=== PATIENT | female | born 1980 | race African-American/Black ===

== ENCOUNTER 2017-03-08 17:47 | Emergency (ER) | payer MEDICAID ==
[~2017-03-08] VITALS: Ht 162.6 cm; Wt 88.0 kg
[2017-03-08] MEDS ORDERED: ONDANSETRON PF 4 MG/2 ML VIAL. IV ONE (18:30)
[2017-03-08] MEDS ORDERED: HYDROmorphone 2 MG/ML VIAL IV/SQ PRN (18:30)
[2017-03-08] MEDS: HYDROmorphone 2 MG/ML VIAL IM PRN ×2 (18:43→19:40)
[2017-03-08] MEDS ORDERED: IV NORMAL SALINE 1000ML BAG 1,000 ML IV SCH (18:45)
[2017-03-08] MEDS ORDERED: KETOROLAC TROMETHAMINE 60 MG/2 ML INJ. IM ONE (18:45)
--- NOTE | 2017-03-08 19:24 | PHYS DOC ---
Past Medical History Past Medical History: Asthma, Other Additional Past Medical Histor: SICKLE CELL Past Surgical History: Cholecystectomy, , Other Additional Past Surgical Histo: PARTIAL SPLENECTOMY Additional Information: 0.5 PPD Alcohol Use: None Drug Use: Marijuana Adult General Chief Complaint Chief Complaint: PAIN CONTROL HPI HPI Patient is a 36 year old female with sickle cell anemia who presents with generalized body pain, abdominal pain, and nbnb n/v developing over the past few days. States symptoms are exactly like prior sickle cell pain. States she is out of chronic narcotic medication and her doctor is out of town. She has been taking NSAIDs at home. She denies chest pain, dyspnea, cough, fever or chills, diarrhea, dark or bloody stools. Last bowel movement was yesterday and normal. She denies dysuria or hematuria. States she does not want an IV placed and she only wants IM medications. States she is ok having lab draw. Review of Systems Review of Systems Constitutional: Denies fever or chills [] Eyes: Denies change in visual acuity, redness, or eye pain [] HENT: Denies nasal congestion or sore throat [] Respiratory: Denies cough or shortness of breath [] Cardiovascular: No additional information not addressed in HPI [] GI: Denies abdominal pain, nausea, vomiting, bloody stools or diarrhea [] : Denies dysuria or hematuria [] Musculoskeletal: Denies back pain or joint pain [] Integument: Denies rash or skin lesions [] Neurologic: Denies headache, focal weakness or sensory changes [] Endocrine: Denies polyuria or polydipsia [] Current Medications Current Medications Current Medications Medications (Trade) Dose Ordered Sig/Arie Start Time Stop Time Status Last Admin Dose Admin Hydromorphone HCl (Dilaudid) 1 mg PRN Q15MIN PRN 03/08/17 18:30 03/08/17 20:51 DC 03/08/17 19:40 1 MG Ketorolac Tromethamine (Toradol Im) 30 mg 1X ONCE 03/08/17 18:45 03/08/17 18:46 DC 03/08/17 18:41 30 MG Ondansetron HCl (Zofran) 4 mg 1X ONCE 03/08/17 18:30 03/08/17 18:30 DC Promethazine HCl (Phenergan Im) 25 mg 1X ONCE 03/08/17 19:30 03/08/17 19:31 DC 03/08/17 19:39 25 MG Sodium Chloride 1,000 ml @ 1,000 mls/hr Q1H 03/08/17 18:45 03/08/17 18:45 DC Allergies Allergies Allergies Coded Allergies Type Severity Reaction Last Updated Verified Penicillins Allergy Severe anphylaxis 03/08/17 Yes morphine Allergy Intermediate 03/08/17 Yes ondansetron Allergy Intermediate 03/08/17 Yes Physical Exam Physical Exam Constitutional: Well developed, well nourished, non-toxic appearance. Crying. [] HENT: Normocephalic, atraumatic, bilateral external ears normal, oropharynx moist, nose normal. [] Eyes: PERRLA, EOMI. [] Neck: Normal range of motion, supple. [] Cardiovascular: Heart rate regular rhythm [] Lungs & Thorax: Bilateral breath sounds clear to auscultation [] Abdomen: Bowel sounds normal, soft, mild general tenderness, no guarding or rebound. [] Skin: Warm, dry, no erythema, no rash. [] Back: No tenderness, no CVA tenderness. [] Extremities: No bony tenderness, no discoloration, ROM intact, no edema. [] Neurologic: Alert and oriented X 3, normal motor function, normal sensory function, no focal deficits noted. [] Psychologic: Affect normal, judgement normal, mood normal. [] Current Patient Data Vital Signs Vital Signs Date Time Temp Pulse Resp B/P (MAP) Pulse Ox O2 Delivery O2 Flow Rate FiO2 03/08/17 20:21 88 211/109 (143) 96 Room Air 03/08/17 19:40 18 03/08/17 18:12 98.8 98.8 Lab Values Laboratory Tests Test 03/08/17 19:30 White Blood Count 9.0 x10^3/uL (4.0-11.0) Red Blood Count 4.60 x10^6/uL (3.50-5.40) Hemoglobin 11.1 g/dL (12.0-15.5) L Hematocrit 34.4 % (36.0-47.0) L Mean Corpuscular Volume 75 fL (79-100) L Mean Corpuscular Hemoglobin 24 pg (25-35) L Mean Corpuscular Hemoglobin Concent 32 g/dL (31-37) Red Cell Distribution Width 16.4 % (11.5-14.5) H Platelet Count 181 x10^3/uL (140-400) Neutrophils (%) (Auto) 55 % (31-73) Lymphocytes (%) (Auto) 36 % (24-48) Monocytes (%) (Auto) 6 % (0-9) Eosinophils (%) (Auto) 2 % (0-3) Basophils (%) (Auto) 1 % (0-3) Neutrophils # (Auto) 5.0 x10^3uL (1.8-7.7) Lymphocytes # (Auto) 3.3 x10^3/uL (1.0-4.8) Monocytes # (Auto) 0.6 x10^3/uL (0.0-1.1) Eosinophils # (Auto) 0.2 x10^3/uL (0.0-0.7) Basophils # (Auto) 0.1 x10^3/uL (0.0-0.2) Reticulocyte Count (auto) 1.3 % (0.5-2.5) Sodium Level 142 mmol/L (136-145) Potassium Level 3.4 mmol/L (3.5-5.1) L Chloride Level 107 mmol/L (98-107) Carbon Dioxide Level 26 mmol/L (21-32) Anion Gap 9 (6-14) Blood Urea Nitrogen 10 mg/dL (7-20) Creatinine 0.9 mg/dL (0.6-1.0) Estimated GFR (Cockcroft-Gault) 86.2 BUN/Creatinine Ratio 11 (6-20) Glucose Level 108 mg/dL (70-99) H Lactic Acid Level 1.6 mmol/L (0.4-2.0) Calcium Level 8.2 mg/dL (8.5-10.1) L Total Bilirubin 0.3 mg/dL (0.2-1.0) Aspartate Amino Transferase (AST) 17 U/L (15-37) Alanine Aminotransferase (ALT) 27 U/L (14-59) Alkaline Phosphatase 108 U/L (46-116) Lactate Dehydrogenase 127 U/L (81-234) Total Protein 7.1 g/dL (6.4-8.2) Albumin 3.3 g/dL (3.4-5.0) L Albumin/Globulin Ratio 0.9 (1.0-1.7) L Lipase 214 U/L (73-393) Laboratory Tests 03/08/17 19:30 Laboratory Tests 03/08/17 19:30 Course & Med Decision Making Course & Med Decision Making Pertinent Labs and Imaging studies reviewed. (See chart for details) Laboratory evaluation is unremarkable. She is feeling better after medications and tolerating oral intake. She would like to go home short course of pain medications until she can see her primary care doctor for medication refill. Agreed to give her medication to last through the night. Encouraged her to follow-up with her primary care doctor tomorrow for chronic pain management and high blood pressure. Return precautions given. She understands and agrees with plan. Dragon Disclaimer Jose Disclaimer This electronic medical record was generated, in whole or in part, using a voice recognition dictation system. Departure Departure Impression: Primary Impression: Sickle cell crisis Disposition: HOME, SELF-CARE Condition: STABLE Referrals: UNKNOWN PCP NAME (PCP) Patient Instructions: Sickle Cell Pain Crisis, [id number] Additional Instructions: Take Tylenol or ibuprofen as needed for moderate pain. Take Percocet as needed for severe pain. Do not drink, drive or operate heavy machinery after taking Percocet as it may make you sleepy. Follow-up with your primary care doctor. Return for any concerns. Scripts Oxycodone/Apap 5-325 (PERCOCET 5-325 MG TABLET) 1 Each Tablet 1-2 TAB PO Q4-6HRS Y for PAIN, #6 TAB Prov: Jose KEBEDE MD 03/08/17 Jose KEBEDE MD Mar 08, 2017 19:23
[2017-03-08] MEDS ORDERED: PROMETHAZINE IM 25 MG/ML VIAL IM ONE (19:30)
[2017-03-08 19:53] LABS: BASO # 0.1 x10^3/uL (0.0-0.2); BASO % 1 % (0-3); EOS % 2 % (0-3); HEMATOCRIT 34.4 % (36.0-47.0); HEMOGLOBIN 11.1 g/dL (12.0-15.5); LYMPH # 3.3 x10^3/uL (1.0-4.8); LYMPH % 36 % (24-48); MEAN CORPUSCULAR HEMOGLOBIN 24 pg (25-35); MEAN CORPUSCULAR HGB CONC 32 g/dL (31-37); MEAN CORPUSCULAR VOLUME 75 fL (79-100); MONO % 6 % (0-9); NEUT % 55 % (31-73); PLATELET COUNT 181 x10^3/uL (140-400); RED CELL DISTRIBUTION WIDTH 16.4 % (11.5-14.5)
--- NOTE | 2017-03-08 19:54 | ACF ---
Admission Forms Criteria SICKLE CELL DISEASE Clinical Indications for Admission to Inpatient Care (Place 'X' for any and all applicable criteria): Admission is indicated for ANY ONE of the following(1)(2)(3)(4)(5): [X]I. Inpatient admission required rather than observation care because of ANY ONE of the following: [ ]a) Altered mental status [ ]b) High fever or infection requiring inpatient admission as indicated by ANY ONE of the following: [ ]A. Appropriate outpatient observation care antimicrobial treatment unavailable, not effective, or not appropriate for infection [ ]B. Documented bacteremia [ ]C. Temp >104.9F (40.5C) (oral) [ ]D. Temp >103.1F (oral) or <96.8F(rectal) that does not respond to all emergency treatment measures [ ]c) Supplemental O2 or respiratory therapy for over 24 h that are performable only in acute inpatient setting [ ]d) Continuous parenteral narcoticsother major pain intervention for >24 h performable only in acute inpatient setting. [ ]e) Exchange transfusion [X]f) Other condition, treatment or monitoring requiring inpatient admission [ ]II. Acute chest syndrome indicated by ALL of the following (10): [ ]a) New alveolar infiltrate involving at least one lung segment [ ]b) Associated pulmonary symptoms or findings as indicated by ANY ONE of the following: [ ]i) Chest pain [ ]ii) Hypoxemia [ ]iii) Tachypnea/dyspnea [ ]iv) Wheezing [ ]v) Cough [ ]vi) Sputum production [ ]III. Significant hypoxemia or acidosis (more severe than baseline) [ ]IV. Emergent surgery needed (eg, acute cholecystitis) [ ]V. -related complication(11) [ ]. Splenic or hepatic sequestration(12) [ ]VII. Aplastic crisis [ ]VIII. Priapism or other vascular complication(13) [ ]IX. Traumatic hyphema [A](14) [ ]X. Underlying condition requiring hospitalization (eg, osteomyelitis) [ ]XI. Signs or symptoms of central nervous system injury indicated by ANY ONE of the following: [ ]a) Stroke(9) [ ]b) Seizure [ ]c) Other significant central nervous system symptom or event [ ]XII. Acute renal failure Extended stay beyond goal length of stay may be needed for: [ ]a) Inadequate pain control [ ]b) Acute chest syndrome [ ]c) Sequestration or aplastic crisis (12) [ ]d) Pneumonia and asthma exacerbation [ ]e) Neurologic or vascular complications (25) [ ]f) Infection (eg, osteomyelitis) that requires ongoing treatment) The original [facility] content created by [facility] has been revised. The portions of the content which have been revised are identified through the use of italic text or in bold, and [facility] has neither reviewed nor approved the modified material. All other unmodified content is copyright [facility]. Please see references footnoted in the original [facility] edition 2016 Admission Criteria Met?: Yes KORTNEY LANDRY Mar 08, 2017 19:54
[2017-03-08 19:56] LABS: RETIC COUNT 1.3 % (0.5-2.5)
[2017-03-08 20:21] VITALS: BP 211/109
[2017-03-08 20:32] LABS: CREATININE 0.9 mg/dL (0.6-1.0); GFR 86.2
[2017-03-08] MEDS ORDERED: OXYC-323 PO (20:34)
[2017-03-08 20:36] LABS: ALBUMIN 3.3 g/dL (3.4-5.0); ALBUMIN/GLOBULIN RATIO 0.9 (1.0-1.7); TOTAL BILIRUBIN 0.3 mg/dL (0.2-1.0); TOTAL PROTEIN 7.1 g/dL (6.4-8.2)
[2017-03-08 20:38] LABS: CALCIUM 8.2 mg/dL (8.5-10.1)
[2017-03-08 20:39] LABS: POTASSIUM 3.4 mmol/L (3.5-5.1)
== END 2017-03-08 20:49 | disposition home or self-care (01) ==
LOC: ER 17:47
DX: D57.00 Hb-SS disease with crisis, unspecified (principal); J45.909 Unspecified asthma, uncomplicated; Z90.49 Acquired absence of other specified parts of digestive tract; Z98.890 Other specified postprocedural states
CPT/HCPCS: 36415; 80053; 83605; 83615; 83690; 85027; 85045; 96372; 99284; J1170; J1885; J2550